=== PATIENT | male | born 1950 | race Caucasian/White ===

== ENCOUNTER → 2017-06-01 | Outpatient (CLI) | payer MEDICAID | LOC: CIMAGING 14:51 | PROVIDERS: ATTEND Family Medicine | DX: M85.88 Other specified disorders of bone density and structure, other site (principal) | CPT/HCPCS: 71101-PO ==

== ENCOUNTER → 2017-06-07 | Outpatient (CLI) | payer MEDICAID | LOC: BRMIMAGING 08:40 | PROVIDERS: ATTEND Family Medicine | DX: S39.91XA Unspecified injury of abdomen, initial encounter (principal) | CPT/HCPCS: 76705-PO ==